=== PATIENT | female | born 1995 | race Caucasian/White ===

== ENCOUNTER → 2018-10-15 | Emergency (ER) | payer OTHER, MEDICAID ==
[~2018-10-15] VITALS: Ht 160 cm; Wt 91.2 kg
[~2018-10-15] MED LIST: CYCL10TA9 PO; CYCLOBENZAPRINE 10 MG (FLEXERIL) TAB PO ONE; FLUC200T PO; KETOROLAC 60 MG/2 ML VIAL ONE; METR500T PO; NITR-65 PO
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
[2018-10-15 17:22] LABS: BILIRUBIN,URINE NEGATIVE (NEGATIVE); CLARITY,URINE VERY CLOUDY; COLOR,URINE YELLOW; GLUCOSE, URINE (UA) NEGATIVE (NEGATIVE); KETONES,URINE NEGATIVE (NEGATIVE); LEUKOCYTE ESTERASE ,URINE 3+ (NEGATIVE); NITRITE,URINE NEGATIVE (NEGATIVE); PH,URINE 7 (5-9); PROTEIN,URINE 1+ (NEGATIVE); UROBILINOGEN,URINE 1 MG/DL (NORMAL)
[2018-10-15 17:38] LABS: TRICHOMONAS,URINE MODERATE /HPF; YEAST,URINE FEW /HPF
[2018-10-15 17:39] LABS: BACTERIA,URINE LARGE /HPF
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
[2018-10-15 19:20] VITALS: BP 112/57
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
== END | disposition home or self-care (01) ==
LOC: ER 17:04
DX: S49.91XA Unspecified injury of right shoulder and upper arm, initial encounter (principal); N39.0 Urinary tract infection, site not specified; A59.01 Trichomonal vulvovaginitis; M54.2 Cervicalgia; R40.2142 Coma scale, eyes open, spontaneous, at arrival to emergency department; R40.2252 Coma scale, best verbal response, oriented, at arrival to emergency department; R40.2362 Coma scale, best motor response, obeys commands, at arrival to emergency department; V49.40XA Driver injured in collision with unspecified motor vehicles in traffic accident, initial encounter; Y92.59 Other trade areas as the place of occurrence of the external cause; Y99.0 Civilian activity done for income or pay
CPT/HCPCS: 70450; 72020; 72125; 73030; 73060; 81000; 84703; 87088